=== PATIENT | male | born 1975 | race Caucasian/White ===

== ENCOUNTER 2016-04-28 15:00 | Outpatient (RCR) | payer MEDICAID ==
[~2016-04-28 15:00] MED LIST: ALDACTONE 25MG25 M1 PO; APRESOLINE 25MG25 MG PO; ASPIRIN 32325 MG/TA1 PO; ASPIRIN 32325 MG/TAB PO; ASPIRIN 81M81 MG/TA2 PO; ATENOLOL50 MG PO; BETAPACE 80MG80 MG PO; BETAPACE160 MG PO; CEFTIN 250250 MG/TAB PO; CEPHALEXIN500 M1 PO; COREG 25MG25 MG/TAB PO; COREG 6.256.25 MG/TA PO; COREG12.5 MG PO; DEMADEX 20MG20 M1 PO; DIABETA 2.5MG2.5 MG PO; EPA1000 MG PO; GLUCOPHAGE XR500 M1 PO; GLUCOPHAGE1000 MG PO; GLUCOPHAGE500 MG PO; GLUCOPHAGE500 MG/TAB PO; GLYBURIDE MICRON3 MG PO; IMDUR 30MG30 MG/TAB PO; K-DUR 2020 MEQ PO; K-TAB10 PO; LANOXIN 0.120.125 MG PO; LANTUS100 U/ML SQ; LASIX 40MG TABL40 MG PO; LASIX40 MG PO; LASIX80 MG PO; LEVAQUIN 750MG750 M1 PO; LIPITOR 40MG TA40 MG PO; LISINOPRIL10 MG PO; METFORMIN500 MG PO; NO HOME MEDICATIONS; NORCO 325 MG-51 TAB PO; NORVASC 10MG10 MG PO; OMNICEF 300MG300 MG PO; PHENERGAN W/CO120 ML PO; PRINIVIL40 MG; PRINIVIL40 MG PO; PROAIR HFA0.09 MG/AC IH; TUSS PO; TYLENOL 325MG325 MG PO; XARELTO20 MG PO; ZAROXOLYN 2.52.5 MG PO; ZESTRIL 20MG TA20 MG PO; ZESTRIL40 MG PO; ZITHROMAX 250M250 MG PO
== END 2016-05-11 12:45 | disposition still patient (30) ==
LOC: WSPT 15:00
DX: E11.42 Type 2 diabetes mellitus with diabetic polyneuropathy (principal); E11.622 Type 2 diabetes mellitus with other skin ulcer; L97.929 Non-pressure chronic ulcer of unspecified part of left lower leg with unspecified severity; R60.0 Localized edema; E66.8 Other obesity

== ENCOUNTER 2016-08-15 04:48 | Inpatient (IN) | payer MEDICAID ==
[~2016-08-15] VITALS: Ht 193 cm; Wt 128.0 kg
[2016-08-15 05:14] LABS: BASO % 0.4 % (0.0-2.0); EOS # 0.2 (0.0-0.7); EOS % 2.1 % (0-4.0); GRAN # 7.2 (1.4-6.5); GRAN % 76.2 % (42.2-75.2); HEMATOCRIT 42.9 % (42.0-52.0); HEMOGLOBIN 12.7 g/dl (13.5-18.0); LYMPH # 1.4 (1.2-3.4); LYMPH % 15.1 % (20.0-51.0); MEAN CELL VOLUME 83 fl (80.0-100.0); MEAN CORPUSCULAR HEMOGLOBIN 25 pg (27.0-31.0); MEAN CORPUSCULAR HGB CONC 30 g/dl (33.0-37.0); MEAN PLATELET VOLUME 10.8 fl (7.4-10.4); MONO # 0.6 (0.1-0.6); MONO % 5.9 % (1.7-9.3); PLATELET COUNT 189 K/mm3 (130-400); RED BLOOD COUNT 5.15 M/mm3 (4.20-5.60); REDCELL DISTRIBUTION WIDTH-CV 17.2 % (11.5-14.5); WHITE BLOOD COUNT 9.5 K/mm3 (4.8-10.8)
[2016-08-15 05:17] LABS: INR 1.2 (0.8-3.0)
[2016-08-15 05:20] LABS: PARTIAL THROMBOPLASTIN TIME 32.1 SECONDS (26.0-37.0)
[2016-08-15 05:23] LABS: ADJUSTED CALCIUM 8.7 mg/dL (8.4-10.2); ALBUMIN 3.6 gm/dL (3.5-5.0); BILIRUBIN,TOTAL 1.7 mg/dL (0.0-1.0); CALCIUM 8.4 mg/dL (8.4-10.2); CREATININE, serum 0.95 mg/dL (0.66-1.25); POTASSIUM 4.2 mmol/L (3.4-5.0); TOTAL PROTEIN 6.6 gm/dL (6.4-8.2)
[2016-08-15 05:38] LABS: TROPONIN-I 0.079 ng/mL (0.000-0.034)
[2016-08-15 06:57] VITALS: BP 143/93; PULSE 88; TEMP 97.7
[2016-08-15 08:06] VITALS: BP 160/110; PULSE 85; TEMP 98
[2016-08-15 12:35] VITALS: BP 110/60; PULSE 64; TEMP 98.1
[2016-08-15 16:17] VITALS: BP 98/56; PULSE 63; TEMP 98
[2016-08-15 20:10] VITALS: BP 97/59; PULSE 61; TEMP 97.6
[2016-08-16 00:24] VITALS: BP 126/64; PULSE 63; TEMP 97.9
[2016-08-16 04:35] VITALS: BP 126/88; PULSE 62; TEMP 97.7
[2016-08-16 08:02] LABS: BASO # 0.1 (0.0-0.2); BASO % 0.5 % (0.0-2.0); EOS # 0.3 (0.0-0.7); EOS % 2.7 % (0-4.0); GRAN # 7.3 (1.4-6.5); GRAN % 76.9 % (42.2-75.2); HEMATOCRIT 43.4 % (42.0-52.0); HEMOGLOBIN 12.6 g/dl (13.5-18.0); LYMPH # 1.3 (1.2-3.4); LYMPH % 13.6 % (20.0-51.0); MEAN CELL VOLUME 86 fl (80.0-100.0); MEAN CORPUSCULAR HGB CONC 29 g/dl (33.0-37.0); MEAN PLATELET VOLUME 10.2 fl (7.4-10.4); MONO # 0.6 (0.1-0.6); MONO % 5.9 % (1.7-9.3); PLATELET COUNT 195 K/mm3 (130-400); RED BLOOD COUNT 5.06 M/mm3 (4.20-5.60); REDCELL DISTRIBUTION WIDTH-CV 17.5 % (11.5-14.5); WHITE BLOOD COUNT 9.5 K/mm3 (4.8-10.8)
[2016-08-16 08:06] LABS: MEAN CORPUSCULAR HEMOGLOBIN 25 pg (27.0-31.0)
[2016-08-16 08:14] LABS: ADJUSTED CALCIUM 8.8 mg/dL (8.4-10.2); ALBUMIN 3.8 gm/dL (3.5-5.0); BILIRUBIN,TOTAL 1.7 mg/dL (0.0-1.0); CALCIUM 8.6 mg/dL (8.4-10.2); CREATININE, serum 1.05 mg/dL (0.66-1.25); MAGNESIUM 1.7 mg/dL (1.6-2.3); POTASSIUM 4.4 mmol/L (3.4-5.0); TOTAL PROTEIN 6.9 gm/dL (6.4-8.2)
[2016-08-16 08:25] LABS: TROPONIN-I 0.071 ng/mL (0.000-0.034)
[2016-08-16 08:38] VITALS: BP 133/72; PULSE 123; TEMP 98.1
[2016-08-16 11:35] VITALS: BP 120/71; PULSE 62; TEMP 98.3
[2016-08-16 21:55] VITALS: BP 121/66; PULSE 63; TEMP 98.7
[2016-08-16 23:43] VITALS: BP 116/62; PULSE 61; TEMP 97.6
[2016-08-17 04:11] VITALS: BP 139/89; PULSE 61; TEMP 98.5
[2016-08-17 08:24] VITALS: BP 114/76; PULSE 68; TEMP 98
[2016-08-17 12:22] VITALS: BP 104/59; PULSE 62; TEMP 97.9
[2016-08-17 15:56] VITALS: BP 116/61; PULSE 66; TEMP 98.4
[2016-08-17 23:04] VITALS: BP 115/69; PULSE 58; TEMP 98.7
[2016-08-18 03:53] VITALS: BP 138/76; PULSE 59; TEMP 97.7
[2016-08-18 07:49] LABS: BASO % 0.5 % (0.0-2.0); EOS # 0.2 (0.0-0.7); EOS % 2.9 % (0-4.0); GRAN # 6.2 (1.4-6.5); GRAN % 74.4 % (42.2-75.2); HEMATOCRIT 41.8 % (42.0-52.0); HEMOGLOBIN 12.5 g/dl (13.5-18.0); LYMPH # 1.2 (1.2-3.4); LYMPH % 14.1 % (20.0-51.0); MEAN CELL VOLUME 83 fl (80.0-100.0); MEAN CORPUSCULAR HEMOGLOBIN 25 pg (27.0-31.0); MEAN CORPUSCULAR HGB CONC 30 g/dl (33.0-37.0); MEAN PLATELET VOLUME 11.7 fl (7.4-10.4); MONO # 0.6 (0.1-0.6); MONO % 7.6 % (1.7-9.3); PLATELET COUNT 207 K/mm3 (130-400); RED BLOOD COUNT 5.01 M/mm3 (4.20-5.60); REDCELL DISTRIBUTION WIDTH-CV 17.2 % (11.5-14.5); WHITE BLOOD COUNT 8.3 K/mm3 (4.8-10.8)
[2016-08-18 08:10] LABS: CALCIUM 8.6 mg/dL (8.4-10.2); CREATININE, serum 0.94 mg/dL (0.66-1.25); POTASSIUM 3.8 mmol/L (3.4-5.0)
[2016-08-18 08:31] VITALS: BP 138/91; PULSE 64; TEMP 97.4
[2016-08-18 11:44] VITALS: BP 93/58; PULSE 62; TEMP 97.8
== END 2016-08-18 16:14 | disposition home or self-care (01) | DRG 282 ==
LOC: COL.ER 04:48 → MEDICAL 05:58
PROVIDERS: Emergency Medicine; Internal Medicine; Physician Assistant
DX: I11.0 Hypertensive heart disease with heart failure (principal); I21.4 Non-ST elevation (NSTEMI) myocardial infarction; I50.21 Acute systolic (congestive) heart failure; I42.9 Cardiomyopathy, unspecified; I48.0 Paroxysmal atrial fibrillation; E11.9 Type 2 diabetes mellitus without complications; G47.33 Obstructive sleep apnea (adult) (pediatric); E78.5 Hyperlipidemia, unspecified; Z79.01 Long term (current) use of anticoagulants; Z95.0 Presence of cardiac pacemaker; Z95.810 Presence of automatic (implantable) cardiac defibrillator; Z87.891 Personal history of nicotine dependence; Z91.14 Patient's other noncompliance with medication regimen
CPT/HCPCS: 99223-AI; 99232-AI; 99233-AI; 99239; J1815; J1940; J2270

== ENCOUNTER 2016-11-22 07:32 | Day surgery (SDC) | payer MEDICAID ==
[2016-11-22] VITALS (11 sets, daily range): BP systolic 109–143; BP diastolic 72–93; PULSE 47–80; TEMP 97.5
[~2016-11-22] VITALS: Ht 193 cm; Wt 129.0 kg
[2016-11-22 08:24] LABS: INR 1.2 (0.8-3.0); PROTHROMBIN TIME 12.8 SECONDS (9.7-12.8)
[2016-11-22 08:28] LABS: POTASSIUM 4.2 mmol/L (3.4-5.0)
[2016-11-22 09:03] LABS: THYROID STIMULATING HORMONE 2.46 uIU/mL (0.465-4.680)
[2016-11-22] MEDS ORDERED: ASPIRIN 81M81 MG/TA2 PO (09:03)
[2016-11-22] MEDS ORDERED: PACERONE400 MG PO (09:04)
[2016-11-22] MEDS ORDERED: DEMADEX100 MG PO (09:05)
== END 2016-11-22 11:14 | disposition home or self-care (01) ==
LOC: COL.CAR 07:32
PROVIDERS: Internal Medicine Cardiovascular Disease
DX: I48.92 Unspecified atrial flutter (principal); I08.1 Rheumatic disorders of both mitral and tricuspid valves; I48.0 Paroxysmal atrial fibrillation; I42.0 Dilated cardiomyopathy; I11.0 Hypertensive heart disease with heart failure; I50.20 Unspecified systolic (congestive) heart failure; G47.33 Obstructive sleep apnea (adult) (pediatric); E11.9 Type 2 diabetes mellitus without complications; E66.9 Obesity, unspecified; Z68.34 Body mass index [BMI] 34.0-34.9, adult; Z79.4 Long term (current) use of insulin; Z79.84 Long term (current) use of oral hypoglycemic drugs; Z79.01 Long term (current) use of anticoagulants; Z87.891 Personal history of nicotine dependence; Z83.3 Family history of diabetes mellitus
CPT/HCPCS: J2250; J3010; J7030

== ENCOUNTER 2017-01-08 02:14 | Emergency (ER) | payer MEDICAID ==
[~2017-01-08 02:14] MED LIST changes: +DEMADEX100 MG PO; +PACERONE400 MG PO
[2017-01-08 02:18] VITALS: TEMP 98.8
[2017-01-08 03:49] LABS: BASO # 0.1 (0.0-0.2); BASO % 0.4 % (0.0-2.0); EOS # 0.2 (0.0-0.7); EOS % 1.7 % (0-4.0); GRAN # 9.4 (1.4-6.5); GRAN % 76.3 % (42.2-75.2); HEMATOCRIT 39.7 % (42.0-52.0); HEMOGLOBIN 12.8 g/dl (13.5-18.0); LYMPH # 1.7 (1.2-3.4); LYMPH % 13.9 % (20.0-51.0); MEAN CELL VOLUME 83 fl (80.0-100.0); MEAN CORPUSCULAR HEMOGLOBIN 27 pg (27.0-31.0); MEAN CORPUSCULAR HGB CONC 32 g/dl (33.0-37.0); MEAN PLATELET VOLUME 11.2 fl (7.4-10.4); MONO # 0.9 (0.1-0.6); MONO % 7.4 % (1.7-9.3); PLATELET COUNT 170 K/mm3 (130-400); RED BLOOD COUNT 4.78 M/mm3 (4.20-5.60); REDCELL DISTRIBUTION WIDTH-CV 18.3 % (11.5-14.5)
[2017-01-08 03:55] LABS: INR 1.1 (0.8-3.0); PROTHROMBIN TIME 12.6 SECONDS (9.7-12.8)
[2017-01-08 03:57] LABS: PARTIAL THROMBOPLASTIN TIME 32.7 SECONDS (26.0-37.0)
[2017-01-08 03:59] LABS: D-DIMER < 200.00 ng/mLDDu (200-230)
[2017-01-08 04:01] LABS: ALBUMIN 3.9 gm/dL (3.5-5.0); BILIRUBIN,TOTAL 1.1 mg/dL (0.0-1.0); CALCIUM 8.8 mg/dL (8.4-10.2); CREATININE, serum 0.98 mg/dL (0.66-1.25); POTASSIUM 4.1 mmol/L (3.4-5.0)
[2017-01-08] MEDS ORDERED: PERCOCET 325 MG1 TA2 PO (04:56)
[2017-01-08] MEDS ORDERED: DOXYCYCLINE 10100 MG PO (04:56)
[2017-01-08 05:27] VITALS: BP 127/73; PULSE 69
[2017-04-01] MEDS ORDERED: AMOXICILLIN 50500 MG PO (03:30)
[2017-04-01] MEDS ORDERED: NORCO 325 MG-51 TAB PO (03:30)
[2018-02-18] MEDS ORDERED: NEURONTIN600 MG/TAB PO (03:22)
== END 2017-01-08 05:27 | disposition home or self-care (01) ==
LOC: COL.ER 02:14
PROVIDERS: Emergency Medicine
DX: L03.115 Cellulitis of right lower limb (principal); E11.622 Type 2 diabetes mellitus with other skin ulcer; L97.219 Non-pressure chronic ulcer of right calf with unspecified severity; L97.929 Non-pressure chronic ulcer of unspecified part of left lower leg with unspecified severity; I10 Essential (primary) hypertension; F17.200 Nicotine dependence, unspecified, uncomplicated; I42.9 Cardiomyopathy, unspecified; Z79.01 Long term (current) use of anticoagulants; T45.516A Underdosing of anticoagulants, initial encounter
CPT/HCPCS: J1170; J2405

== ENCOUNTER 2017-02-03 02:30 | Observation (INO) | payer MEDICAID ==
[~2017-02-03] VITALS: Ht 193 cm; Wt 104.6 kg
[2017-02-03] VITALS (305 sets, daily range): BP systolic 118–121; BP diastolic 68–75; PULSE 59–66; TEMP 98.2–98.4; O2SAT 78–99
[~2017-02-03 02:30] MED LIST changes: +DOXYCYCLINE 10100 MG PO; +PERCOCET 325 MG1 TA2 PO
[2017-02-03 03:08] LABS: BASO % 0.4 % (0.0-2.0); EOS # 0.2 (0.0-0.7); EOS % 2.5 % (0-4.0); GRAN # 6.2 (1.4-6.5); GRAN % 67.8 % (42.2-75.2); HEMATOCRIT 43.7 % (42.0-52.0); HEMOGLOBIN 13.8 g/dl (13.5-18.0); LYMPH # 1.9 (1.2-3.4); LYMPH % 20.3 % (20.0-51.0); MEAN CELL VOLUME 85 fl (80.0-100.0); MEAN CORPUSCULAR HEMOGLOBIN 27 pg (27.0-31.0); MEAN CORPUSCULAR HGB CONC 32 g/dl (33.0-37.0); MEAN PLATELET VOLUME 10.4 fl (7.4-10.4); MONO # 0.8 (0.1-0.6); MONO % 8.6 % (1.7-9.3); PLATELET COUNT 203 K/mm3 (130-400); RED BLOOD COUNT 5.14 M/mm3 (4.20-5.60); REDCELL DISTRIBUTION WIDTH-CV 17.2 % (11.5-14.5); WHITE BLOOD COUNT 9.2 K/mm3 (4.8-10.8)
[2017-02-03 03:14] LABS: INR 1.5 (0.8-3.0); PROTHROMBIN TIME 17.4 SECONDS (9.7-12.8)
[2017-02-03 03:16] LABS: PARTIAL THROMBOPLASTIN TIME 41.9 SECONDS (26.0-37.0)
[2017-02-03 03:17] LABS: ADJUSTED CALCIUM 9.6 mg/dL (8.4-10.2); ALBUMIN 3.9 gm/dL (3.5-5.0); BILIRUBIN,TOTAL 0.9 mg/dL (0.0-1.0); CALCIUM 9.5 mg/dL (8.4-10.2); CREATININE, serum 1.41 mg/dL (0.66-1.25); POTASSIUM 3.9 mmol/L (3.4-5.0); TOTAL PROTEIN 7.4 gm/dL (6.4-8.2)
[2017-02-03 03:29] LABS: TROPONIN-I 0.027 ng/mL (0.000-0.034)
[2017-02-03 06:18] LABS: CREATININE, serum 1.26 mg/dL (0.66-1.25); POTASSIUM 4.1 mmol/L (3.4-5.0)
[2017-02-03 06:31] LABS: TROPONIN-I 0.036 ng/mL (0.000-0.034)
[2017-02-04] VITALS (9 sets, daily range): BP systolic 110–141; BP diastolic 54–79; PULSE 60–73; TEMP 97.8–98.1
[2017-02-04 06:37] LABS: HEMATOCRIT 44.9 % (42.0-52.0); HEMOGLOBIN 14.3 g/dl (13.5-18.0); MEAN CELL VOLUME 87 fl (80.0-100.0); MEAN CORPUSCULAR HEMOGLOBIN 28 pg (27.0-31.0); MEAN CORPUSCULAR HGB CONC 32 g/dl (33.0-37.0); MEAN PLATELET VOLUME 10.5 fl (7.4-10.4); PLATELET COUNT 178 K/mm3 (130-400); RED BLOOD COUNT 5.17 M/mm3 (4.20-5.60); REDCELL DISTRIBUTION WIDTH-CV 18.6 % (11.5-14.5); WHITE BLOOD COUNT 9.3 K/mm3 (4.8-10.8)
[2017-02-04 06:59] LABS: CALCIUM 9.1 mg/dL (8.4-10.2); CREATININE, serum 0.9 mg/dL (0.66-1.25); POTASSIUM 4.4 mmol/L (3.4-5.0)
== END 2017-02-04 14:44 | disposition home or self-care (01) ==
LOC: COL.ER 02:30 → MEDICAL 07:13 → ICU 07:13 → MEDICAL 07:13
PROVIDERS: Emergency Medicine; Internal Medicine Cardiovascular Disease
DX: R07.9 Chest pain, unspecified (principal); I42.0 Dilated cardiomyopathy; I48.91 Unspecified atrial fibrillation; I48.92 Unspecified atrial flutter; E66.9 Obesity, unspecified; E78.5 Hyperlipidemia, unspecified; I11.0 Hypertensive heart disease with heart failure; E11.9 Type 2 diabetes mellitus without complications; I50.9 Heart failure, unspecified; I08.1 Rheumatic disorders of both mitral and tricuspid valves; Z79.01 Long term (current) use of anticoagulants; Z79.84 Long term (current) use of oral hypoglycemic drugs; Z95.0 Presence of cardiac pacemaker; Z95.818 Presence of other cardiac implants and grafts; Z87.891 Personal history of nicotine dependence; Z82.49 Family history of ischemic heart disease and other diseases of the circulatory system
CPT/HCPCS: 99223-AI; A9502; G0378; J1650; J2270; J2785; J7040

== ENCOUNTER 2017-05-07 21:21 | Emergency (ER) | payer MEDICAID ==
[~2017-05-07] VITALS: Ht 193 cm; Wt 118.2 kg
[~2017-05-07 21:21] MED LIST changes: +AMOXICILLIN 50500 MG PO
[2017-05-07 21:25] VITALS: TEMP 97.6
[2017-05-07 21:57] LABS: BASO # 0.1 (0.0-0.2); BASO % 0.5 % (0.0-2.0); EOS # 0.2 (0.0-0.7); GRAN # 8.5 (1.4-6.5); GRAN % 77.9 % (42.2-75.2); LYMPH # 1.6 (1.2-3.4); LYMPH % 15.1 % (20.0-51.0); MEAN CELL VOLUME 89 fl (80.0-100.0); MEAN CORPUSCULAR HGB CONC 32 g/dl (33.0-37.0); MEAN PLATELET VOLUME 10.6 fl (7.4-10.4); MONO # 0.4 (0.1-0.6); PLATELET COUNT 188 K/mm3 (130-400); RED BLOOD COUNT 4.11 M/mm3 (4.20-5.60); REDCELL DISTRIBUTION WIDTH-CV 15.4 % (11.5-14.5)
[2017-05-07 21:58] LABS: HEMATOCRIT 36.7 % (42.0-52.0); HEMOGLOBIN 11.8 g/dl (13.5-18.0); MEAN CORPUSCULAR HEMOGLOBIN 29 pg (27.0-31.0)
[2017-05-07 22:03] LABS: INR 1.1 (0.8-3.0); PROTHROMBIN TIME 12.7 SECONDS (9.7-12.8)
[2017-05-07 22:06] LABS: ALBUMIN 3.5 gm/dL (3.5-5.0); BILIRUBIN,TOTAL 1.3 mg/dL (0.0-1.0); CALCIUM 8.6 mg/dL (8.4-10.2); CREATININE, serum 0.96 mg/dL (0.66-1.25); PARTIAL THROMBOPLASTIN TIME 29.6 SECONDS (26.0-37.0); POTASSIUM 3.7 mmol/L (3.4-5.0); TOTAL PROTEIN 6.5 gm/dL (6.4-8.2)
[2017-05-07 22:19] LABS: TROPONIN-I 0.069 ng/mL (0.000-0.034)
[2017-05-07 23:25] VITALS: BP 150/110; PULSE 95
== END 2017-05-07 23:28 | disposition home or self-care (01) ==
LOC: COL.ER 21:21
PROVIDERS: Family Medicine
DX: I50.9 Heart failure, unspecified (principal); J81.1 Chronic pulmonary edema; E11.9 Type 2 diabetes mellitus without complications; F17.210 Nicotine dependence, cigarettes, uncomplicated; Z79.84 Long term (current) use of oral hypoglycemic drugs; Z79.82 Long term (current) use of aspirin
CPT/HCPCS: J1940

== ENCOUNTER 2017-05-17 23:15 | Inpatient (IN) | payer MEDICAID ==
[~2017-05-17] VITALS: Ht 193 cm; Wt 124.8 kg
[2017-05-18] VITALS (8 sets, daily range): BP systolic 96–149; BP diastolic 58–86; PULSE 55–105; TEMP 87.9–99.3
[2017-05-18 00:15] LABS: BASO # 0.1 (0.0-0.2); BASO % 0.5 % (0.0-2.0); EOS # 0.2 (0.0-0.7); EOS % 1.7 % (0-4.0); GRAN # 7.4 (1.4-6.5); GRAN % 74.6 % (42.2-75.2); HEMATOCRIT 38.2 % (42.0-52.0); HEMOGLOBIN 11.8 g/dl (13.5-18.0); LYMPH # 1.6 (1.2-3.4); LYMPH % 15.9 % (20.0-51.0); MEAN CELL VOLUME 92 fl (80.0-100.0); MEAN CORPUSCULAR HEMOGLOBIN 28 pg (27.0-31.0); MEAN CORPUSCULAR HGB CONC 31 g/dl (33.0-37.0); MEAN PLATELET VOLUME 11.2 fl (7.4-10.4); MONO # 0.7 (0.1-0.6); MONO % 6.8 % (1.7-9.3); PLATELET COUNT 212 K/mm3 (130-400); RED BLOOD COUNT 4.16 M/mm3 (4.20-5.60); REDCELL DISTRIBUTION WIDTH-CV 15.7 % (11.5-14.5)
[2017-05-18 00:19] LABS: INR 1.1 (0.8-3.0); PROTHROMBIN TIME 12.6 SECONDS (9.7-12.8)
[2017-05-18 00:22] LABS: PARTIAL THROMBOPLASTIN TIME 29.4 SECONDS (26.0-37.0)
[2017-05-18 00:30] LABS: ALBUMIN 3.8 gm/dL (3.5-5.0); BILIRUBIN,TOTAL 0.7 mg/dL (0.0-1.0); CALCIUM 8.9 mg/dL (8.4-10.2); CREATININE, serum 1.11 mg/dL (0.66-1.25); POTASSIUM 4.2 mmol/L (3.4-5.0); TOTAL PROTEIN 6.8 gm/dL (6.4-8.2)
[2017-05-18 00:43] LABS: TROPONIN-I 0.059 ng/mL (0.000-0.034)
[2017-05-18 07:11] LABS: CALCIUM 8.8 mg/dL (8.4-10.2); CREATININE, serum 1.09 mg/dL (0.66-1.25); MAGNESIUM 1.6 mg/dL (1.6-2.3); PHOSPHOROUS 4.6 mg/dL (2.5-4.5); POTASSIUM 4.2 mmol/L (3.4-5.0)
[2017-05-18 07:15] LABS: TROPONIN-I 6 HR POST INITIAL 0.059 ng/mL (0.000-0.034)
[2017-05-19 05:11] VITALS: BP 97/67; PULSE 61; TEMP 98.1
[2017-05-19 06:15] VITALS: BP 104/66
[2017-05-19 06:38] LABS: BASO # 0.1 (0.0-0.2); BASO % 0.6 % (0.0-2.0); EOS # 0.1 (0.0-0.7); EOS % 1.2 % (0-4.0); GRAN # 6.9 (1.4-6.5); GRAN % 76.2 % (42.2-75.2); LYMPH # 1.3 (1.2-3.4); LYMPH % 14.8 % (20.0-51.0); MEAN CELL VOLUME 91 fl (80.0-100.0); MEAN CORPUSCULAR HEMOGLOBIN 28 pg (27.0-31.0); MEAN CORPUSCULAR HGB CONC 30 g/dl (33.0-37.0); MEAN PLATELET VOLUME 11.3 fl (7.4-10.4); MONO # 0.6 (0.1-0.6); MONO % 6.6 % (1.7-9.3); PLATELET COUNT 193 K/mm3 (130-400); RED BLOOD COUNT 4.05 M/mm3 (4.20-5.60)
[2017-05-19 06:39] LABS: HEMOGLOBIN 11.2 g/dl (13.5-18.0)
[2017-05-19 06:51] LABS: CALCIUM 8.4 mg/dL (8.4-10.2); CREATININE, serum 1.12 mg/dL (0.66-1.25); POTASSIUM 3.4 mmol/L (3.4-5.0)
[2017-05-19] MEDS ORDERED: DOXYCYCLINE 10100 MG PO (09:46)
[2017-05-19] MEDS ORDERED: DEMADEX 20MG20 M1 PO (09:47)
[2017-05-19] MEDS ORDERED: K-TAB20 PO (09:48)
== END 2017-05-19 12:00 | disposition home or self-care (01) | DRG 602 ==
LOC: COL.ER 23:15 → MEDICAL 05-18 01:04
PROVIDERS: Emergency Medicine; Internal Medicine; Physician Assistant
DX: L03.115 Cellulitis of right lower limb (principal); I50.23 Acute on chronic systolic (congestive) heart failure; I21.A1 Myocardial infarction type 2; I42.9 Cardiomyopathy, unspecified; I11.0 Hypertensive heart disease with heart failure; E11.9 Type 2 diabetes mellitus without complications; G47.33 Obstructive sleep apnea (adult) (pediatric); F17.210 Nicotine dependence, cigarettes, uncomplicated; D64.9 Anemia, unspecified; Z95.810 Presence of automatic (implantable) cardiac defibrillator; Z79.4 Long term (current) use of insulin
CPT/HCPCS: 99222-AI; 99233-AI; 99239; J1644; J1815; J1940; J2270

== ENCOUNTER 2017-06-10 19:09 | Emergency (ER) | payer MEDICAID ==
[~2017-06-10] VITALS: Ht 193 cm; Wt 122.7 kg
[~2017-06-10 19:09] MED LIST changes: +K-TAB20 PO
[2017-06-10 19:14] VITALS: TEMP 99.7
[2017-06-10 20:16] LABS: BASO # 0.1 (0.0-0.2); BASO % 0.7 % (0.0-2.0); EOS # 0.2 (0.0-0.7); EOS % 2.1 % (0-4.0); GRAN # 6.9 (1.4-6.5); GRAN % 79.5 % (42.2-75.2); HEMATOCRIT 38.1 % (42.0-52.0); LYMPH % 11.6 % (20.0-51.0); MEAN CELL VOLUME 89 fl (80.0-100.0); MEAN CORPUSCULAR HEMOGLOBIN 27 pg (27.0-31.0); MEAN CORPUSCULAR HGB CONC 30 g/dl (33.0-37.0); MEAN PLATELET VOLUME 11.6 fl (7.4-10.4); MONO # 0.5 (0.1-0.6); MONO % 5.8 % (1.7-9.3); PLATELET COUNT 177 K/mm3 (130-400); RED BLOOD COUNT 4.28 M/mm3 (4.20-5.60); REDCELL DISTRIBUTION WIDTH-CV 16.6 % (11.5-14.5)
[2017-06-10 20:17] LABS: HEMOGLOBIN 11.6 g/dl (13.5-18.0)
[2017-06-10 20:27] LABS: ALBUMIN 3.8 gm/dL (3.5-5.0); C-REACTIVE PROTEIN 3.9 mg/dL (0.0-0.9); CALCIUM 8.6 mg/dL (8.4-10.2); CREATININE, serum 0.92 mg/dL (0.66-1.25); POTASSIUM 4.3 mmol/L (3.4-5.0); TOTAL PROTEIN 6.9 gm/dL (6.4-8.2)
[2017-06-10 20:40] LABS: TROPONIN-I 0.057 ng/mL (0.000-0.034)
[2017-06-10] MEDS ORDERED: DOXYCYCLINE 10100 MG PO (21:04)
[2017-06-10 21:25] VITALS: BP 133/58; PULSE 92
== END 2017-06-10 21:25 | disposition home or self-care (01) ==
LOC: COL.ER 19:09
PROVIDERS: Emergency Medicine
DX: J45.909 Unspecified asthma, uncomplicated (principal); J20.9 Acute bronchitis, unspecified; R79.89 Other specified abnormal findings of blood chemistry; I48.91 Unspecified atrial fibrillation; I11.0 Hypertensive heart disease with heart failure; I50.9 Heart failure, unspecified; E11.9 Type 2 diabetes mellitus without complications; I42.9 Cardiomyopathy, unspecified; F17.210 Nicotine dependence, cigarettes, uncomplicated; Z79.82 Long term (current) use of aspirin; Z79.84 Long term (current) use of oral hypoglycemic drugs

== ENCOUNTER 2017-06-13 19:49 | Emergency (ER) | payer MEDICAID ==
[~2017-06-13] VITALS: Ht 193 cm; Wt 122.7 kg
[2017-06-13 19:51] VITALS: BP 150/87; PULSE 94; TEMP 97.4
[2017-06-13] MEDS ORDERED: AMOXICILLIN 50500 MG PO (20:16)
[2017-06-13] MEDS ORDERED: NORCO 325 MG-51 TAB PO (20:16)
== END 2017-06-13 20:43 | disposition home or self-care (01) ==
LOC: COL.ER 19:49
DX: K01.1 Impacted teeth (principal); I10 Essential (primary) hypertension; I42.9 Cardiomyopathy, unspecified; F17.210 Nicotine dependence, cigarettes, uncomplicated; Z79.82 Long term (current) use of aspirin; Z79.84 Long term (current) use of oral hypoglycemic drugs

== ENCOUNTER 2017-06-23 04:35 | Emergency (ER) | payer MEDICAID ==
[~2017-06-23] VITALS: Ht 193 cm; Wt 125.0 kg
[2017-06-23 04:40] VITALS: TEMP 97
[2017-06-23 05:17] LABS: BASO % 0.3 % (0.0-2.0); EOS # 0.2 (0.0-0.7); EOS % 1.9 % (0-4.0); GRAN # 7.8 (1.4-6.5); HEMATOCRIT 37.8 % (42.0-52.0); LYMPH # 1.3 (1.2-3.4); LYMPH % 13.5 % (20.0-51.0); MEAN CELL VOLUME 87 fl (80.0-100.0); MEAN CORPUSCULAR HEMOGLOBIN 27 pg (27.0-31.0); MEAN CORPUSCULAR HGB CONC 30 g/dl (33.0-37.0); MEAN PLATELET VOLUME 10.9 fl (7.4-10.4); MONO # 0.5 (0.1-0.6); MONO % 4.9 % (1.7-9.3); PLATELET COUNT 187 K/mm3 (130-400); RED BLOOD COUNT 4.33 M/mm3 (4.20-5.60); REDCELL DISTRIBUTION WIDTH-CV 16.4 % (11.5-14.5)
[2017-06-23 05:18] LABS: HEMOGLOBIN 11.5 g/dl (13.5-18.0)
[2017-06-23 05:26] LABS: ALBUMIN 3.6 gm/dL (3.5-5.0); BILIRUBIN,TOTAL 0.9 mg/dL (0.0-1.0); CALCIUM 8.5 mg/dL (8.4-10.2); CREATININE, serum 0.91 mg/dL (0.66-1.25); POTASSIUM 4.5 mmol/L (3.4-5.0); TOTAL PROTEIN 6.5 gm/dL (6.4-8.2)
[2017-06-23 05:42] LABS: TROPONIN-I 0.049 ng/mL (0.000-0.034)
[2017-06-23] MEDS ORDERED: PREDNISONE20 MG PO (07:46)
[2017-06-23 08:59] VITALS: BP 125/90; PULSE 74
== END 2017-06-23 09:00 | disposition home or self-care (01) ==
LOC: COL.ER 04:35
PROVIDERS: Emergency Medicine
DX: I11.0 Hypertensive heart disease with heart failure (principal); I50.9 Heart failure, unspecified; E11.9 Type 2 diabetes mellitus without complications; I48.91 Unspecified atrial fibrillation; F17.210 Nicotine dependence, cigarettes, uncomplicated; Z79.82 Long term (current) use of aspirin; Z79.84 Long term (current) use of oral hypoglycemic drugs
CPT/HCPCS: J1940

== ENCOUNTER 2017-09-21 18:03 | Emergency (ER) | payer OTHER ==
[~2017-09-21] VITALS: Ht 162.6 cm; Wt 122.7 kg
[~2017-09-21 18:03] MED LIST changes: +PREDNISONE20 MG PO
[2017-09-21 18:09] VITALS: TEMP 96.2
[2017-09-21 19:08] LABS: BASO % 0.5 % (0.0-2.0); EOS # 0.2 (0.0-0.7); EOS % 2.2 % (0-4.0); GRAN # 6.8 (1.4-6.5); GRAN % 77.6 % (42.2-75.2); HEMATOCRIT 39.2 % (42.0-52.0); HEMOGLOBIN 11.7 g/dl (13.5-18.0); LYMPH # 1.1 (1.2-3.4); MEAN CELL VOLUME 85 fl (80.0-100.0); MEAN CORPUSCULAR HEMOGLOBIN 25 pg (27.0-31.0); MEAN CORPUSCULAR HGB CONC 30 g/dl (33.0-37.0); MEAN PLATELET VOLUME 10.5 fl (7.4-10.4); MONO # 0.5 (0.1-0.6); MONO % 6.2 % (1.7-9.3); PLATELET COUNT 156 K/mm3 (130-400); RED BLOOD COUNT 4.63 M/mm3 (4.20-5.60); REDCELL DISTRIBUTION WIDTH-CV 18.4 % (11.5-14.5)
[2017-09-21 19:21] LABS: ALBUMIN 3.3 gm/dL (3.5-5.0); BILIRUBIN,TOTAL 1.2 mg/dL (0.0-1.0); CALCIUM 8.3 mg/dL (8.4-10.2); CREATININE, serum 0.85 mg/dL (0.66-1.25); POTASSIUM 4.2 mmol/L (3.4-5.0); TOTAL PROTEIN 6.6 gm/dL (6.4-8.2)
[2017-09-21 19:43] LABS: TROPONIN-I 0.052 ng/mL (0.000-0.034)
[2017-09-21 20:46] VITALS: BP 139/98; PULSE 82
== END 2017-09-21 21:27 | disposition home or self-care (01) ==
LOC: COL.ER 18:03
PROVIDERS: Nurse Practitioner
DX: R07.89 Other chest pain (principal); F32.9 Major depressive disorder, single episode, unspecified; I50.9 Heart failure, unspecified; F17.210 Nicotine dependence, cigarettes, uncomplicated; F12.90 Cannabis use, unspecified, uncomplicated; I42.9 Cardiomyopathy, unspecified; Z98.890 Other specified postprocedural states; Z79.4 Long term (current) use of insulin
CPT/HCPCS: J1940; J2270; Q9967

== ENCOUNTER 2017-09-28 22:54 | Emergency (ER) | payer OTHER ==
[~2017-09-28] VITALS: Ht 195.6 cm; Wt 127.0 kg
[2017-09-28 22:57] VITALS: TEMP 97.9
[2017-09-28 23:24] LABS: BASO % 0.4 % (0.0-2.0); EOS # 0.1 (0.0-0.7); EOS % 1.5 % (0-4.0); GRAN # 6.3 (1.4-6.5); HEMATOCRIT 39.6 % (42.0-52.0); LYMPH # 1.2 (1.2-3.4); LYMPH % 14.4 % (20.0-51.0); MEAN CELL VOLUME 82 fl (80.0-100.0); MEAN CORPUSCULAR HEMOGLOBIN 25 pg (27.0-31.0); MEAN CORPUSCULAR HGB CONC 30 g/dl (33.0-37.0); MEAN PLATELET VOLUME 10.6 fl (7.4-10.4); MONO # 0.7 (0.1-0.6); MONO % 8.3 % (1.7-9.3); PLATELET COUNT 181 K/mm3 (130-400); RED BLOOD COUNT 4.85 M/mm3 (4.20-5.60); REDCELL DISTRIBUTION WIDTH-CV 18.4 % (11.5-14.5)
[2017-09-28 23:30] LABS: INR 1.2 (0.8-3.0); PROTHROMBIN TIME 13.3 SECONDS (9.7-12.8)
[2017-09-28 23:33] LABS: ALBUMIN 3.4 gm/dL (3.5-5.0); BILIRUBIN,TOTAL 1.1 mg/dL (0.0-1.0); CALCIUM 8.6 mg/dL (8.4-10.2); CREATININE, serum 1.25 mg/dL (0.66-1.25); PARTIAL THROMBOPLASTIN TIME 35.3 SECONDS (26.0-37.0); POTASSIUM 4.3 mmol/L (3.4-5.0); TOTAL PROTEIN 6.9 gm/dL (6.4-8.2)
[2017-09-28 23:45] LABS: TROPONIN-I 0.052 ng/mL (0.000-0.034)
[2017-09-29] MEDS ORDERED: DOXYCYCLINE 10100 MG PO (00:20)
[2017-09-29 00:33] VITALS: BP 124/78; PULSE 64
== END 2017-09-29 00:35 | disposition home or self-care (01) ==
LOC: COL.ER 22:54
PROVIDERS: Family Medicine
DX: I11.0 Hypertensive heart disease with heart failure (principal); I50.9 Heart failure, unspecified; J90 Pleural effusion, not elsewhere classified; L03.116 Cellulitis of left lower limb; L03.115 Cellulitis of right lower limb; R60.9 Edema, unspecified
CPT/HCPCS: J1940

== ENCOUNTER 2017-12-03 09:29 | Emergency (ER) | payer OTHER ==
[~2017-12-03] VITALS: Ht 193 cm; Wt 122.7 kg
[2017-12-03 09:43] VITALS: TEMP 98
[2017-12-03 10:08] LABS: BASO % 0.4 % (0.0-2.0); EOS # 0.2 (0.0-0.7); EOS % 2.5 % (0-4.0); GRAN # 5.6 (1.4-6.5); GRAN % 71.7 % (42.2-75.2); HEMATOCRIT 40.2 % (42.0-52.0); HEMOGLOBIN 12.4 g/dl (13.5-18.0); LYMPH # 1.4 (1.2-3.4); LYMPH % 17.6 % (20.0-51.0); MEAN CELL VOLUME 84 fl (80.0-100.0); MEAN CORPUSCULAR HEMOGLOBIN 26 pg (27.0-31.0); MEAN CORPUSCULAR HGB CONC 31 g/dl (33.0-37.0); MEAN PLATELET VOLUME 10.4 fl (7.4-10.4); MONO # 0.6 (0.1-0.6); MONO % 7.5 % (1.7-9.3); PLATELET COUNT 163 K/mm3 (130-400); RED BLOOD COUNT 4.78 M/mm3 (4.20-5.60); REDCELL DISTRIBUTION WIDTH-CV 19.7 % (11.5-14.5)
[2017-12-03 10:11] LABS: INR 1.1 (0.8-3.0)
[2017-12-03 10:26] LABS: ALBUMIN 3.6 gm/dL (3.5-5.0); BILIRUBIN,TOTAL 0.9 mg/dL (0.0-1.0); C-REACTIVE PROTEIN 1.8 mg/dL (0.0-0.9); CALCIUM 8.7 mg/dL (8.4-10.2); CREATININE, serum 1.04 mg/dL (0.66-1.25); POTASSIUM 4.2 mmol/L (3.4-5.0); TOTAL PROTEIN 6.5 gm/dL (6.4-8.2)
[2017-12-03 10:38] LABS: TROPONIN-I 0.045 ng/mL (0.000-0.034)
[2017-12-03] MEDS ORDERED: AMOXICILLIN 8751 TAB PO (10:50)
[2017-12-03 11:05] VITALS: BP 111/71; PULSE 64
== END 2017-12-03 11:05 | disposition home or self-care (01) ==
LOC: COL.ER 09:29
PROVIDERS: Family Medicine
DX: I50.9 Heart failure, unspecified (principal); G62.9 Polyneuropathy, unspecified; Z79.84 Long term (current) use of oral hypoglycemic drugs

== ENCOUNTER 2017-12-12 08:29 | Emergency (ER) | payer OTHER ==
[~2017-12-12] VITALS: Ht 193 cm; Wt 122.7 kg
[~2017-12-12 08:29] MED LIST changes: +AMOXICILLIN 8751 TAB PO
[2017-12-12 08:34] VITALS: TEMP 97.8
[2017-12-12 09:37] LABS: BASO % 0.4 % (0.0-2.0); EOS # 0.2 (0.0-0.7); EOS % 2.3 % (0-4.0); GRAN # 7.1 (1.4-6.5); GRAN % 75.6 % (42.2-75.2); HEMATOCRIT 43.2 % (42.0-52.0); HEMOGLOBIN 13.4 g/dl (13.5-18.0); LYMPH # 1.3 (1.2-3.4); LYMPH % 13.2 % (20.0-51.0); MEAN CELL VOLUME 84 fl (80.0-100.0); MEAN CORPUSCULAR HEMOGLOBIN 26 pg (27.0-31.0); MEAN CORPUSCULAR HGB CONC 31 g/dl (33.0-37.0); MEAN PLATELET VOLUME 10.2 fl (7.4-10.4); MONO # 0.8 (0.1-0.6); MONO % 8.2 % (1.7-9.3); PLATELET COUNT 175 K/mm3 (130-400); RED BLOOD COUNT 5.13 M/mm3 (4.20-5.60); REDCELL DISTRIBUTION WIDTH-CV 18.7 % (11.5-14.5)
[2017-12-12 09:57] LABS: ERYTHROCYTE SEDIMENTATION RATE 6 mm/hr (0-15)
[2017-12-12] MEDS ORDERED: DOXYCYCLINE 10100 MG PO (10:47)
[2017-12-12] MEDS ORDERED: CEPHALEXIN500 M1 PO (10:47)
[2017-12-12] MEDS ORDERED: NORCO 325 MG-51 TAB PO (10:47)
[2017-12-12 11:04] LABS: ALBUMIN 3.7 gm/dL (3.5-5.0); BILIRUBIN,TOTAL 0.6 mg/dL (0.0-1.0); CALCIUM 8.3 mg/dL (8.4-10.2); CREATININE, serum 0.96 mg/dL (0.66-1.25); POTASSIUM 4.8 mmol/L (3.4-5.0)
[2017-12-12 11:42] VITALS: BP 138/90; PULSE 70
== END 2017-12-12 12:25 | disposition home or self-care (01) ==
LOC: COL.ER 08:29
PROVIDERS: Emergency Medicine
DX: L03.115 Cellulitis of right lower limb (principal); L03.116 Cellulitis of left lower limb; I11.0 Hypertensive heart disease with heart failure; I50.9 Heart failure, unspecified; I48.91 Unspecified atrial fibrillation; E78.00 Pure hypercholesterolemia, unspecified; Z95.810 Presence of automatic (implantable) cardiac defibrillator; Z79.84 Long term (current) use of oral hypoglycemic drugs
CPT/HCPCS: J1170; J7050

== ENCOUNTER 2018-07-16 02:31 | Emergency (ER) | payer MEDICAID ==
[~2018-07-16] VITALS: Ht 193 cm; Wt 125.0 kg
[~2018-07-16 02:31] MED LIST changes: +NEURONTIN600 MG/TAB PO
[2018-07-16 02:35] VITALS: TEMP 97.5
[2018-07-16] MEDS ORDERED: LASIX 80MG TABL80 MG PO (02:52)
[2018-07-16] MEDS ORDERED: COUMADIN 5MG5 MG/TAB PO (03:05)
[2018-07-16] MEDS ORDERED: ENTRESTO 49 MG1 EACH PO (03:05)
[2018-07-16] MEDS ORDERED: COREG 3.123.125 MG/T PO (03:05)
[2018-07-16] MEDS ORDERED: LIPITOR 40MG TA40 MG PO (03:05)
[2018-07-16] MEDS ORDERED: ALDACTONE 25MG25 M1 PO (03:06)
[2018-07-16 03:15] LABS: BASO % 0.4 % (0.0-2.0); EOS # 0.2 (0.0-0.7); EOS % 2.3 % (0-4.0); GRAN # 7.5 (1.4-6.5); GRAN % 70.8 % (42.2-75.2); HEMATOCRIT 49.6 % (42.0-52.0); HEMOGLOBIN 16.7 g/dl (13.5-18.0); LYMPH % 18.6 % (20.0-51.0); MEAN CELL VOLUME 88 fl (80.0-100.0); MEAN CORPUSCULAR HEMOGLOBIN 30 pg (27.0-31.0); MEAN CORPUSCULAR HGB CONC 34 g/dl (33.0-37.0); MEAN PLATELET VOLUME 11.2 fl (7.4-10.4); MONO # 0.8 (0.1-0.6); MONO % 7.3 % (1.7-9.3); PLATELET COUNT 168 K/mm3 (130-400); RED BLOOD COUNT 5.67 M/mm3 (4.20-5.60); REDCELL DISTRIBUTION WIDTH-CV 14.8 % (11.5-14.5)
[2018-07-16 03:26] LABS: BILIRUBIN,TOTAL 0.4 mg/dL (0.0-1.0); CREATININE, serum 1.05 mg/dL (0.66-1.25); INR 1.5 (0.8-3.0); POTASSIUM 4.4 mmol/L (3.4-5.0); PROTHROMBIN TIME 17.1 SECONDS (9.7-12.8); TOTAL PROTEIN 7.2 gm/dL (6.4-8.2)
[2018-07-16 03:29] LABS: PARTIAL THROMBOPLASTIN TIME 42.3 SECONDS (26.0-37.0)
[2018-07-16 03:38] LABS: TROPONIN-I 0.035 ng/mL (0.000-0.035)
[2018-07-16 05:36] VITALS: BP 138/86; PULSE 60
== END 2018-07-16 05:44 | disposition left against medical advice (07) ==
LOC: COL.ER 02:31
PROVIDERS: Emergency Medicine
DX: R07.89 Other chest pain (principal); E11.9 Type 2 diabetes mellitus without complications; I11.0 Hypertensive heart disease with heart failure; E78.5 Hyperlipidemia, unspecified; I48.91 Unspecified atrial fibrillation; I50.9 Heart failure, unspecified; F17.210 Nicotine dependence, cigarettes, uncomplicated; Z79.84 Long term (current) use of oral hypoglycemic drugs; Z79.01 Long term (current) use of anticoagulants

== ENCOUNTER 2018-08-11 16:38 | Emergency (ER) | payer MEDICAID ==
[~2018-08-11] VITALS: Ht 193 cm; Wt 127.3 kg
[~2018-08-11 16:38] MED LIST changes: +COREG 3.123.125 MG/T PO; +COUMADIN 5MG5 MG/TAB PO; +ENTRESTO 49 MG1 EACH PO; +LASIX 80MG TABL80 MG PO
[2018-08-11 17:03] LABS: BASO % 0.4 % (0.0-2.0); EOS # 0.2 (0.0-0.7); EOS % 1.6 % (0-4.0); GRAN # 8.5 (1.4-6.5); GRAN % 75.2 % (42.2-75.2); HEMOGLOBIN 17.4 g/dl (13.5-18.0); LYMPH # 1.7 (1.2-3.4); LYMPH % 15.2 % (20.0-51.0); MEAN CELL VOLUME 88 fl (80.0-100.0); MEAN CORPUSCULAR HEMOGLOBIN 29 pg (27.0-31.0); MEAN CORPUSCULAR HGB CONC 33 g/dl (33.0-37.0); MEAN PLATELET VOLUME 11.5 fl (7.4-10.4); MONO # 0.8 (0.1-0.6); MONO % 7.3 % (1.7-9.3); PLATELET COUNT 202 K/mm3 (130-400); RED BLOOD COUNT 5.99 M/mm3 (4.20-5.60); REDCELL DISTRIBUTION WIDTH-CV 14.8 % (11.5-14.5)
[2018-08-11 17:07] LABS: INR 1.4 (0.8-3.0); PROTHROMBIN TIME 16.1 SECONDS (9.7-12.8)
[2018-08-11 17:10] LABS: HEMATOCRIT 52.9 % (42.0-52.0)
[2018-08-11 17:12] LABS: ALBUMIN 4.1 gm/dL (3.5-5.0); BILIRUBIN,TOTAL 0.6 mg/dL (0.0-1.0); CALCIUM 9.1 mg/dL (8.4-10.2); CREATININE, serum 1.54 (0.66-1.25); POTASSIUM 4.4 mmol/L (3.4-5.0); TOTAL PROTEIN 7.7 gm/dL (6.4-8.2)
[2018-08-11 17:23] LABS: TROPONIN-I 0.035 ng/mL (0.000-0.035)
[2018-08-11 19:53] VITALS: BP 106/81; PULSE 83
== END 2018-08-11 19:53 | disposition home or self-care (01) ==
LOC: COL.ER 16:38
PROVIDERS: Emergency Medicine
DX: R07.89 Other chest pain (principal); R06.00 Dyspnea, unspecified; I50.9 Heart failure, unspecified; Z79.84 Long term (current) use of oral hypoglycemic drugs
CPT/HCPCS: J7030

== ENCOUNTER 2020-03-23 16:47 | Emergency (ER) | payer MEDICAID ==
[~2020-03-23] VITALS: Ht 193 cm; Wt 110.5 kg
[2020-03-23 16:53] VITALS: BP 92/72; PULSE 80; TEMP 97.9
[2020-03-23 17:22] LABS: BASO % 0.2 % (0.0-2.0); EOS # 0.2 (0.0-0.7); GRAN # 6.8 (1.4-6.5); GRAN % 70.1 % (42.2-75.2); HEMOGLOBIN 17.5 g/dl (13.5-18.0); LYMPH % 20.5 % (20.0-51.0); MEAN CELL VOLUME 88 fl (80.0-100.0); MEAN CORPUSCULAR HEMOGLOBIN 30 pg (27.0-31.0); MEAN CORPUSCULAR HGB CONC 34 g/dl (33.0-37.0); MONO # 0.6 (0.1-0.6); MONO % 6.6 % (1.7-9.3); PLATELET COUNT 155 K/mm3 (130-400); REDCELL DISTRIBUTION WIDTH-CV 13.9 % (11.5-14.5)
[2020-03-23 17:23] LABS: ALBUMIN 4.1 gm/dL (3.5-5.0); BILIRUBIN,TOTAL 0.7 mg/dL (0.0-1.0); CALCIUM 8.8 mg/dL (8.4-10.2); CREATININE, serum 1.08 (0.66-1.25); POTASSIUM 4.5 mmol/L (3.4-5.0)
[2020-03-23 17:34] LABS: TROPONIN-I 3 HR POST INITIAL 0.024 ng/mL (0.000-0.034)
[2020-03-23 19:31] LABS: PROTHROMBIN TIME 11.7 SECONDS (9.7-12.8)
[2020-03-23] MEDS ORDERED: ENTRESTO 97 MG1 EACH PO (19:39)
[2020-03-23] MEDS ORDERED: GLUCOPHAGE500 MG/TAB PO (19:42)
[2020-03-23] MEDS ORDERED: ASPIRIN 81M81 MG/TA2 PO (19:44)
[2020-03-23] MEDS ORDERED: LANTUS100 U/ML SQ (19:45)
[2020-03-23] MEDS ORDERED: VICTOZA6 MG/ML SQ (19:45)
[2020-03-23] MEDS ORDERED: RT SPIRIVA18 MCG IH (19:46)
== END 2020-03-23 21:45 | disposition left against medical advice (07) ==
LOC: COL.ER 16:47
PROVIDERS: Emergency Medicine; Nurse Practitioner Family
DX: R07.9 Chest pain, unspecified (principal); I42.9 Cardiomyopathy, unspecified; I11.0 Hypertensive heart disease with heart failure; I50.9 Heart failure, unspecified; E11.9 Type 2 diabetes mellitus without complications; I48.0 Paroxysmal atrial fibrillation; E78.5 Hyperlipidemia, unspecified; G47.33 Obstructive sleep apnea (adult) (pediatric); E66.9 Obesity, unspecified; F17.210 Nicotine dependence, cigarettes, uncomplicated; Z99.89 Dependence on other enabling machines and devices; Z95.810 Presence of automatic (implantable) cardiac defibrillator; Z91.14 Patient's other noncompliance with medication regimen; Z79.01 Long term (current) use of anticoagulants; Z79.82 Long term (current) use of aspirin; Z79.4 Long term (current) use of insulin

== ENCOUNTER 2020-09-29 12:32 | Emergency (ER) | payer MEDICAID ==
[~2020-09-29] VITALS: Ht 193 cm; Wt 125.0 kg
[~2020-09-29 12:32] MED LIST changes: +ENTRESTO 97 MG1 EACH PO; +RT SPIRIVA18 MCG IH; +VICTOZA6 MG/ML SQ
[2020-09-29 12:52] VITALS: TEMP 97.7
[2020-09-29 13:40] LABS: BASO % 0.3 % (0.0-2.0); EOS # 0.2 (0.0-0.7); EOS % 1.7 % (0-4.0); GRAN # 7.3 (1.4-6.5); GRAN % 75.1 % (42.2-75.2); HEMATOCRIT 44.6 % (42.0-52.0); HEMOGLOBIN 13.8 g/dl (13.5-18.0); LYMPH # 1.6 (1.2-3.4); LYMPH % 16.8 % (20.0-51.0); MEAN CELL VOLUME 85 fl (80.0-100.0); MEAN CORPUSCULAR HEMOGLOBIN 26 pg (27.0-31.0); MEAN CORPUSCULAR HGB CONC 31 g/dl (33.0-37.0); MEAN PLATELET VOLUME 11.6 fl (7.4-10.4); MONO # 0.6 (0.1-0.6); MONO % 5.8 % (1.7-9.3); PLATELET COUNT 159 K/mm3 (130-400); RED BLOOD COUNT 5.25 M/mm3 (4.20-5.60); REDCELL DISTRIBUTION WIDTH-CV 16.2 % (11.5-14.5)
[2020-09-29 13:51] LABS: ALBUMIN 3.6 gm/dL (3.5-5.0); C-REACTIVE PROTEIN 3.3 mg/dL (0.0-0.9); CALCIUM 8.3 mg/dL (8.4-10.2); CREATININE, serum 0.73 (0.66-1.25); TOTAL PROTEIN 6.9 gm/dL (6.4-8.2)
[2020-09-29 15:07] LABS: INR 6.5 (0.8-3.0); PROTHROMBIN TIME 73.8 SECONDS (9.7-12.8)
[2020-09-29 16:10] VITALS: BP 131/96; PULSE 78
== END 2020-09-29 16:12 | disposition home or self-care (01) ==
LOC: COL.ER 12:32
PROVIDERS: Physician Assistant
DX: R79.1 Abnormal coagulation profile (principal); M79.662 Pain in left lower leg; E78.5 Hyperlipidemia, unspecified; I11.0 Hypertensive heart disease with heart failure; I25.10 Atherosclerotic heart disease of native coronary artery without angina pectoris; I50.9 Heart failure, unspecified; I48.0 Paroxysmal atrial fibrillation; E11.9 Type 2 diabetes mellitus without complications; E66.9 Obesity, unspecified; J44.9 Chronic obstructive pulmonary disease, unspecified; F17.210 Nicotine dependence, cigarettes, uncomplicated; Z95.0 Presence of cardiac pacemaker; Z79.01 Long term (current) use of anticoagulants; Z79.4 Long term (current) use of insulin; Z79.82 Long term (current) use of aspirin; Z79.899 Other long term (current) drug therapy; Z68.33 Body mass index [BMI] 33.0-33.9, adult
CPT/HCPCS: J3010

== ENCOUNTER 2023-05-19 14:22 | Inpatient (IN) | payer MEDICAID ==
[~2023-05-19] VITALS: Ht 193 cm; Wt 121.6 kg
[2023-05-19] VITALS (125 sets, daily range): BP systolic 85–133; BP diastolic 54–123; PULSE 85–92; TEMP 98.1; O2SAT 86–98
[~2023-05-19 14:22] MED LIST changes: +ELIQUIS 5MG PO
[2023-05-19 15:29] LABS: MEAN CELL VOLUME 84 fl (80.0-100.0); MEAN CORPUSCULAR HGB CONC 34 g/dl (33.0-37.0); PLATELET COUNT 59 K/mm3 (130-400); RED BLOOD COUNT 6.39 M/mm3 (4.20-5.60); REDCELL DISTRIBUTION WIDTH-CV 15.9 % (11.5-14.5)
[2023-05-19 15:30] LABS: ALBUMIN 2.6 gm/dL (3.5-5.0); BILIRUBIN,TOTAL 1.8 mg/dL (0.2-1.2); CALCIUM 8.1 mg/dL (8.4-10.2); CREATININE, serum 1.6 mg/dL (0.72-1.25); POTASSIUM 4.6 mmol/L (3.5-4.5); TOTAL PROTEIN 5.7 gm/dL (6.2-8.1)
[2023-05-19 15:33] LABS: HEMATOCRIT 53.8 % (42.0-52.0); HEMOGLOBIN 18.3 g/dl (13.5-18.0); MEAN CORPUSCULAR HEMOGLOBIN 29 pg (27-31)
[2023-05-19] MEDS ORDERED: NS 1,000 ML IV ONE ×2 (15:41→18:45)
[2023-05-19 15:54] LABS: ANISOCYTOSIS 1+; BAND 5 % (0-10); BURR CELLS 1+; LYMPHOCYTE 4 % (20.0-51.0); NEUTROPHILS 88 % (42.0-75.2); PLATELET ESTIMATE INCREASED (NORMAL)
[2023-05-19 15:55] LABS: OVALOCYTES 1+
[2023-05-19] MEDS ORDERED: fentaNYL 50 MCG/ML 2 ML VIAL IV ONE (16:15)
[2023-05-19 16:31] LABS: INR 1.4 (0.8-3.0); PROTHROMBIN TIME 14.7 SECONDS (9.7-12.8)
[2023-05-19 16:39] LABS: C-REACTIVE PROTEIN 25.75 mg/dL (0.00-0.50)
[2023-05-19 16:48] LABS: TROPONIN-I 0.063 ng/mL (0.00-0.033)
[2023-05-19] MEDS ORDERED: Ondansetron 4 MG/2 ML VIAL IV PRN (17:15)
[2023-05-19] MEDS ORDERED: Acetaminophen 325 MG TAB PO PRN (17:15)
[2023-05-19] MEDS ORDERED: Albuterol/Ipratropium 3 MG-0.5 MG/3 ML Neb Soln IH PRN (17:30)
[2023-05-19] MEDS ORDERED: Pantoprazole 40 MG in NS 10 ML IV SCH (17:52)
--- NOTE | 2023-05-19 18:25 | NUR ---
Pt arrives to ICU 8 from ED at this time. Pt alert and oriented upon arrival. Able to transfer self from ED bed to ICU bed. Pt does easily become SOA with activity. Levophed gtt and fluids infusing. Pt has phone, clothes, and crocs in his possession. Pt's family member brought him charitydo valderrama. Pt orieted to room and instructed to call for assistance. Call light in reach and bed alarm on.
--- NOTE | 2023-05-19 19:00 | NUR ---
REPORT AT BEDSIDE. PT IS PLEASANT AND COOPERATIVE. PT'S EXWIFE AT BEDSIDE AND IS PROVIDING INFORMATION NEEDED. PT C/O PAIN IN BACK. REQUESTING RECLINER. RECLINER PROVIDED.
[2023-05-19 19:08] LABS: CALCIUM 8.5 mg/dL (8.4-10.2); CREATININE, serum 1.54 mg/dL (0.72-1.25); POTASSIUM 4.1 mmol/L (3.5-4.5)
[2023-05-19 19:23] LABS: TROPONIN-I 0.057 ng/mL (0.00-0.033)
[2023-05-19] MEDS ORDERED: Dextrose (Glucose) 15 GM (4 x 3.75 GM) Chewable TABLET PACK PO PRN (19:45)
[2023-05-19] MEDS ORDERED: Dextrose 50% Water 25 GM/50 ML SYRINGE IV PRN (19:45)
[2023-05-19] MEDS ORDERED: Glucagon 1 MG VIAL IM PRN (19:45)
[2023-05-19 20:00] LABS: COLLECTION METHOD CLEAN CATCH
[2023-05-19] MEDS ORDERED: Albuterol/Ipratropium 3 MG-0.5 MG/3 ML Neb Soln IH SCH (20:00)
[2023-05-19] MEDS ORDERED: Insulin Aspart (NovoLOG) SQ SCH ×3 (20:00→21:00)
[2023-05-19] MEDS ORDERED: Vancomycin 1.5 GM,Special Dose/Pharmacy Prepared 1.5 GM in NS 250 ML IV SCH (20:00)
[2023-05-19 20:32] LABS: PH 5.5 (5.0-8.5); URINE APPEARANCE Clear (CLEAR/HAZY); URINE COLOR Yellow (YELLOW); URINE GLUCOSE 3+ (NEGATIVE); URINE KETONE Negative (NEGATIVE); URINE NITRATE Negative (NEGATIVE); URINE PROTEIN(semi-quant) TRACE (NEGATIVE); URINE UROBILINOGEN 0.2 E.U/dL (0.2-1.0)
[2023-05-19 20:33] LABS: SQUAMOUS EPITHELIAL 0-2 /hpf (0-10); URINE BACTERIA Occasional /hpf (NONE SEEN); URINE BLOOD TRACE-LYSED (NEGATIVE); URINE RBC 0-2 /hpf (0-2)
[2023-05-19] MEDS ORDERED: Apixaban 5 MG TAB PO SCH (21:00)
[2023-05-19] MEDS ORDERED: Gabapentin 300 MG CAP PO SCH (21:00)
[2023-05-19] MEDS ORDERED: Atorvastatin 40 MG TAB PO SCH (21:00)
[2023-05-19] MEDS ORDERED: traMADol 50 MG TAB PO PRN (22:00)
[2023-05-19] MEDS ORDERED: Lidocaine 4% Topical Patch TP SCH (22:00)
[2023-05-20] VITALS (517 sets, daily range): BP systolic 76–129; BP diastolic 48–71; PULSE 83–101; TEMP 97.6–98.6; O2SAT 60–99
--- NOTE | 2023-05-20 02:50 | NUR ---
PT REMAINS STABLE ON ROUNDS. LEVOPHED INFUSING. PT VERBALIZED PAIN RELIEF WITH ULTRAM AND LIDOCAIN PATCH. PT PREFERS TO SLEEP IN RECLINER. LEGS BECOME MORE CYANOTIC WHEN DEPENDENT. PT VERBALIZES THAT THIS IS HIS NORMAL. UNABLE TO CULTURE WOUND ON END OF TOE DUE TO ESCHAR. NO SIGN OF DISTRESS AT THIS TIME.
[2023-05-20 06:21] LABS: MEAN CELL VOLUME 84 fl (80.0-100.0); MEAN CORPUSCULAR HGB CONC 34 g/dl (33.0-37.0); PLATELET COUNT 55 K/mm3 (130-400); RED BLOOD COUNT 6.47 M/mm3 (4.20-5.60); REDCELL DISTRIBUTION WIDTH-CV 16.1 % (11.5-14.5)
[2023-05-20 06:36] LABS: HEMATOCRIT 54.2 % (42.0-52.0); HEMOGLOBIN 18.4 g/dl (13.5-18.0); MEAN CORPUSCULAR HEMOGLOBIN 28 pg (27-31)
[2023-05-20 06:42] LABS: ALBUMIN 2.3 gm/dL (3.5-5.0); BILIRUBIN,TOTAL 1.8 mg/dL (0.2-1.2); CALCIUM 8.3 mg/dL (8.4-10.2); CREATININE, serum 1.6 mg/dL (0.72-1.25); POTASSIUM 4.1 mmol/L (3.5-4.5); TOTAL PROTEIN 5.9 gm/dL (6.2-8.1)
--- NOTE | 2023-05-20 06:44 | NUR ---
REMAINS ON LEVOPHED. 3 HOUR [facility] WAS NOT CALLED AT 2200, BECAUSE IT WAS TRENDING [facility]. CALLED THIS AM WITH THE WBC RESULT. STABLE ON ROUNDS. RESPIRATIONS EVEN AND UNLABORED. NO SIGN OF DISTRESS AT THIS TIME.
[2023-05-20 07:13] LABS: LYMPHOCYTE 3 % (20.0-51.0); NEUTROPHILS 81 % (42.0-75.2)
[2023-05-20 07:14] LABS: PLATELET ESTIMATE DECREASED (NORMAL)
[2023-05-20 07:15] LABS: ANISOCYTOSIS 1+
[2023-05-20 07:16] LABS: BAND 11 % (0-10)
--- NOTE | 2023-05-20 07:36 | NUR ---
[facility] NO CALLED. TRENDING DOWN. NURSING JUDGEMENT.
[2023-05-20] MEDS ORDERED: Influenza Virus Vaccine, Quad '23-24 (6 MOS+) 0.5 ML SYRINGE IM SCH (09:00)
[2023-05-20] MEDS ORDERED: Tiotropium 18 MCG **** subs to Tiotropium 5 mcg IH SCH (09:00)
[2023-05-20] MEDS ORDERED: Tiotropium 2.5 MCG Respimat MDI IH SCH (09:00)
[2023-05-20] MEDS ORDERED: ASPIRIN E.C. 8181 MG PO (09:56)
[2023-05-20] MEDS ORDERED: PROTONIX 40MG T40 MG PO (09:58)
[2023-05-20] MEDS ORDERED: LYRICA 150MG C150 MG PO (09:58)
[2023-05-20] MEDS ORDERED: JARDIANCE25 PO (09:58)
[2023-05-20] MEDS ORDERED: TRULICITY4.5 MG/0.5 SQ (09:59)
[2023-05-20] MEDS ORDERED: NS 1,000 ML IV SCH (10:15)
--- NOTE | 2023-05-20 15:48 | NUR ---
JAZMYNE Student identified self as SW Student and completed intake with patient at bedside. Patient stated that he lives in [place], [place] with a roommate who owns their house and his girlfriend. His point of contact is his mother Naty (ph#[phone]). Patient sees Evan Pepper at [facility] for primary care. Patient prefers to obtain medications from [facility] and stated that he has not had any issues with affording medications. Patient reported that he is independent with ADLs and IADLs and does not utilize any DME. Patient stated that he has a source of transportation when needed. Patient currently has [employer] and stated that he will start receiving Medicare for disability in November. Patient stated that he plans to return home at time of discharge. Discharge Plan: Home
[2023-05-20] MEDS ORDERED: NS 500 ML IV ONE (19:30)
[2023-05-20] MEDS ORDERED: Pregabalin 150 MG CAP PO SCH (21:00)
--- NOTE | 2023-05-20 21:49 | NUR ---
PT RESTING IN CHAIR AND BED SIDE REPORT RECIEVED AND DRIPS AND STATUS NOTED TO BE PER REPORT. PT IS A&O X3. BP NOTED TO BE LOW AND LEVOPHED INFUSING AND WILL BE TITRATED PER ORDER. PT DENIES PAIN AT THIS TIME AND ALSO REPORTS DECREASED SENSATION TO BLE. ASSESSMENTS COMPLETED AT THIS TIME, CHAIR WHEELS ARE LOCKED, CALL LIGHT WITHIN REACH, AND PT DENIES ADDITIONAL NEEDS. CARE PLAN REVIEWED AND ALL QUESTIONS ANSWERED.
--- NOTE | 2023-05-20 23:02 | NUR ---
PT REPORTS HE IS GETTING SWEATY. MOIST TO TOUCH. TEMP 98.6. BS CHECKED TO BE 287 AND RECHECK AT 0000. PT REPORTS HE PLANS TO SLEEP. REQUESTED LIGHTS OFF AT THIS TIME. NO ADDITIONAL NEEDS VOICED OR ANTICIPATED
[2023-05-21] VITALS (360 sets, daily range): BP systolic 90–146; BP diastolic 59–86; PULSE 74–223; TEMP 97.3–98.1; O2SAT 74–100
[2023-05-21 04:52] LABS: MEAN CELL VOLUME 85 fl (80.0-100.0); MEAN CORPUSCULAR HGB CONC 33 g/dl (33.0-37.0); RED BLOOD COUNT 6.96 M/mm3 (4.20-5.60); REDCELL DISTRIBUTION WIDTH-CV 17.3 % (11.5-14.5)
[2023-05-21 05:21] LABS: HEMATOCRIT 59.4 % (42.0-52.0); HEMOGLOBIN 19.7 g/dl (13.5-18.0); MEAN CORPUSCULAR HEMOGLOBIN 28 pg (27-31)
[2023-05-21 05:24] LABS: PLATELET COUNT 38 K/mm3 (130-400)
[2023-05-21 07:00] LABS: ANISOCYTOSIS 1+; BAND 12 % (0-10); LYMPHOCYTE 4 % (20.0-51.0); NEUTROPHILS 76 % (42.0-75.2); PLATELET ESTIMATE DECREASED (NORMAL)
--- NOTE | 2023-05-21 07:00 | NUR ---
Received report from ANJANA Nicholas. Reports that patient was somewhat restless overnight. Pt awake and alert at this time; assisted with using urinal. Lies in bed with call light in reach and bed alarm on.
[2023-05-21 07:47] LABS: ALBUMIN 2.5 gm/dL (3.5-5.0); BILIRUBIN,TOTAL 1.2 mg/dL (0.2-1.2); CALCIUM 8.5 mg/dL (8.4-10.2); CREATININE, serum 1.83 mg/dL (0.72-1.25); POTASSIUM 4.3 mmol/L (3.5-4.5); TOTAL PROTEIN 6.6 gm/dL (6.2-8.1)
[2023-05-21] MEDS ORDERED: ceFAZolin 2 G in Water For Injection,Sterile 20 ML IV SCH (09:30)
[2023-05-21] MEDS ORDERED: Cefepime 1 G in Water For Injection,Sterile 10 ML IV SCH (09:30)
--- NOTE | 2023-05-21 10:15 | NUR ---
This nurse called Dr. Choi to let her know that pt is now tachypnic, lethargic, is having trouble staying awake, and has poor cap refil. Dr. Choi came to the pt's bedside to assess pt. New orders received from chest Xray and ABG. Respiratory therapy made aware of order. Pt also placed on HFNC at this time due to desatting into the mid 80's.
[2023-05-21 11:07] LABS: ARTERIAL BLD GAS TCO2 CT 22.2; ARTERIAL BLOOD GAS BASE EXCESS -8.4 (-2-2); ARTERIAL BLOOD GAS HCO3 20.5 meq/L (22-26); ARTERIAL BLOOD GAS PCO2 55.7 mmHg (35-45); ARTERIAL BLOOD GAS PO2 67.7 mmHg (80-100)
[2023-05-21 11:08] LABS: ARTERIAL BLOOD GAS pH 7.18 (7.35-7.45)
[2023-05-21] MEDS ORDERED: Phenylephrine 10 MG/ML VIAL ONE (11:47)
[2023-05-21] MEDS ORDERED: Succinylcholine PF 100 MG/5 ML SYRINGE/POLY AMP IV ONE (11:47)
[2023-05-21] MEDS ORDERED: Etomidate 20 MG/10 ML VIAL IV ONE (11:47)
[2023-05-21] MEDS ORDERED: NS 100 ML IV ONE (11:47)
--- NOTE | 2023-05-21 12:19 | NUR ---
1219- Patient being prepped for intubation. This nurse, Axel ENGINE MANAGER, Enma RN, and Delaney [employer] FACTORY WORKER present through out. Time out also done at this time. Consent for arterial line and intubation obtained from pt's mother who is his medical DPOA. 1221- Sedation administered to pt by Axel, 1222- 8.0 ETT placed 25cm at teeth; lung sounds verified. Pt connected to ventilator. Vital signs stable. 1225- OG tube place; 65cm at teeth. 16Fr nichole catheter placed. 1315- ETT placement and OG placement confirmed by xray.
[2023-05-21] MEDS ORDERED: Insulin Aspart (NovoLOG) SQ SCH (12:36)
[2023-05-21] MEDS ORDERED: fentaNYL 100 ML IV SCH (12:45)
[2023-05-21] MEDS ORDERED: Naloxone 0.4 MG/ML VIAL IV PRN (12:45)
[2023-05-21] MEDS ORDERED: Albuterol 0.083% Neb Soln 2.5 MG/3 ML UD IH PRN (12:45)
[2023-05-21] MEDS ORDERED: Vasopressin 20 UNITS in NS 100 ML IV PRN (13:00)
--- NOTE | 2023-05-21 13:39 | NUR ---
Data: Herb Doctor visit with Patient's Mother and Ex- in the ICU waiting area. Assessment: Both are resigned with his illness; have been through this before. Declined prayer for themselves. Requested Herb Doctor pray with Patient. Plan of Care: RN and Respiratory Therapy Staffmember were with Patient. Herb Doctor prayed for Patient in the Chapel.
--- NOTE | 2023-05-21 13:48 | NUR ---
1348- This nurse made aware by QWiPS that pt in VTach then shocked by ICD. This nurse at the pts bedside upon ICD delivering shock. Dr. Moore called and made aware. Crash cart brought to pt's room and pt attached to zoll monitor. 1351- VTach and shock delivered by ICD. Dr. Choi arrived to pt's bedside. 1356- 150mg amiodarone given IVP. Dr. Choi talkin on the phone with Dr. Bundy. Instructed to start amiodarone gtt at 1mg/min 1400- Amio gtt started at 1mg/min. 1401- VTach and shock delivered by ICD. 1402- 150mg amiodarone given IVP. 1406- VTach and shock delivered by ICD. 1407- VTach and shock delivered by ICD. Dr. Bundy arrived to bedside. 1409- 100mg lidocaine given IVP. 1422- 150mg amiodarone given IVP. Lidocaine gtt started at 1mg/min. 1425- 1g calcium IVP, 1 amp bicarb IVP 1428- VTach and shock delivered by ICD. 1429- 1 amp bicarb IVP, VTach and shock delivered by ICD. 1430- VTach and shock delivered by ICD. 1432- VTach and shock delivered by ICD. 1434- VTach and shock delivered by ICD. 1435- 100mg lidocain given IVP. VTach and shock deliveredby ICD. 1436- VTach and shock delivered by ICD. 1439- 2 grams magnesium given via bolus per Dr. Bundy. 1500- Dr. Choi calling outside facilities to transferto higher level of care. 1536- VTach and shock delivered by ICD. 1537- VTach and shock delivered by ICD. 1545- Pt accepted by [facility] by Dr. Gordon. [facility] called by SHEILA Gilbert. 1615- [facility] arrived. Report given to flight nurse. 1700- Pt left facility at this time via [facility]. Stable at time of transfer. Pt's mother present upon transfer and aware of transfer. All belongings sent with pt's mother; nintendo switch, phone, clock and watch hands dipper, shoes and clothes. 1710- Report given via phone to ANJANA Dong at [facility].
[2023-05-21] MEDS ORDERED: Amiodarone 150 MG/3 ML VIAL IV PRN (14:00)
[2023-05-21] MEDS ORDERED: LIDOCAINE IV ONE ×2 (14:09→14:25)
[2023-05-21] MEDS ORDERED: CARDIAC IV ONE ×2 (14:09→14:25)
[2023-05-21] MEDS ORDERED: Calcium Chloride 1,000 MG (13.6 mEq)/10 ML SYRINGE IV ONE (14:25)
[2023-05-21] MEDS ORDERED: Sodium Bicarbonate 8.4% 50 MEQ/50 ML SYRINGE IV ONE ×2 (14:25→14:29)
[2023-05-21] MEDS ORDERED: Magnesium Sulfate 4% 50 ML IV ONE (14:39)
[2023-05-21 14:41] LABS: ARTERIAL BLD GAS O2 SATURATION 98.6 % (92-100); ARTERIAL BLD GAS TCO2 CT 24.8; ARTERIAL BLOOD GAS BASE EXCESS -1.9 (-2-2); ARTERIAL BLOOD GAS HCO3 23.5 meq/L (22-26); ARTERIAL BLOOD GAS PO2 109.9 mmHg (80-100); ARTERIAL BLOOD GAS pH 7.37 (7.35-7.45)
[2023-05-21 14:49] LABS: MEAN CELL VOLUME 88 fl (80.0-100.0); MEAN CORPUSCULAR HGB CONC 33 g/dl (33.0-37.0); RED BLOOD COUNT 5.57 M/mm3 (4.20-5.60); REDCELL DISTRIBUTION WIDTH-CV 16.3 % (11.5-14.5)
[2023-05-21 15:17] LABS: HEMOGLOBIN 16.3 g/dl (13.5-18.0); MEAN CORPUSCULAR HEMOGLOBIN 29 pg (27-31)
[2023-05-21 15:18] LABS: PLATELET COUNT 48 K/mm3 (130-400)
[2023-05-21 15:27] LABS: ALBUMIN 1.8 gm/dL (3.5-5.0); BILIRUBIN,TOTAL 0.7 mg/dL (0.2-1.2); CREATININE, serum 1.78 mg/dL (0.72-1.25); MAGNESIUM 1.9 mg/dL (1.6-2.6); POTASSIUM 4.6 mmol/L (3.5-4.5)
[2023-05-21 15:49] LABS: BAND 26 % (0-10); PLATELET ESTIMATE DECREASED (NORMAL); TROPONIN-I 0.036 ng/mL (0.00-0.033)
[2023-05-21 15:52] LABS: LYMPHOCYTE 4 % (20.0-51.0); NEUTROPHILS 64 % (42.0-75.2)
--- NOTE | 2023-05-21 19:53 | NUR ---
PT WAS INTUBATED AT 1222 PER ANESTHESIA WITHOUT COMPLICATIONS. 8.0 ETT 25 @ TEETH. BILAT BREATH SOUNDS AND ETCO2 MONITOR CHANGED COLOR INDICATION SUCCESSFUL INTUBATION. COPIOUS AMOUNTS OF CLEAR ORAL SECRETIONS. MODERATE AMOUNT OF THICK BLOOD OUT OF ETT. PT COUGHED INTO THE ETT TUBE DID NOT GO FAR DOWN THE TUBE DUE TO PLATELET COUNT. [facility] ARRIVED FOR TRANSPORT PT WAS SWITCHED FROM THE 980 VENT TO TRANSPORT VENT @ 1656. TOLERATED WELL.
[2023-05-21] MEDS ORDERED: LIDOCAINE IV SCH (21:15)
[2023-05-21] MEDS ORDERED: D5W IV SCH (21:15)
[2023-05-21] MEDS ORDERED: Amiodarone 450 MG in D5W Excel 250 ML IV SCH (21:15)
== END 2023-05-21 17:00 | disposition short-term general hospital (02) | DRG 871 ==
LOC: COL.ER 14:22 → ICU 17:51
PROVIDERS: Emergency Medicine; Internal Medicine Pulmonary Disease; Physician Assistant; ADMIT Internal Medicine
PROC: 0BH17EZ Insertion of Endotracheal Airway into Trachea, Via Natural or Artificial Opening (ICD-10-PCS; principal; 2023-05-21)
PROC: 5A1945Z Respiratory Ventilation, 24-96 Consecutive Hours (ICD-10-PCS; 2023-05-21)
PROC: 03HY32Z Insertion of Monitoring Device into Upper Artery, Percutaneous Approach (ICD-10-PCS; 2023-05-21)
PROC: 4A133B1 Monitoring of Arterial Pressure, Peripheral, Percutaneous Approach (ICD-10-PCS; 2023-05-21)
PROC: 4A133J1 Monitoring of Arterial Pulse, Peripheral, Percutaneous Approach (ICD-10-PCS; 2023-05-21)
DX: A41.01 Sepsis due to Methicillin susceptible Staphylococcus aureus (principal); I21.A1 Myocardial infarction type 2; J96.01 Acute respiratory failure with hypoxia; R65.21 Severe sepsis with septic shock; I49.01 Ventricular fibrillation; J96.02 Acute respiratory failure with hypercapnia; I42.8 Other cardiomyopathies; I50.22 Chronic systolic (congestive) heart failure; E87.1 Hypo-osmolality and hyponatremia; N17.9 Acute kidney failure, unspecified; E87.20 Acidosis, unspecified; M86.8X7 Other osteomyelitis, ankle and foot; I47.20 Ventricular tachycardia, unspecified; I47.21 Torsades de pointes; J44.9 Chronic obstructive pulmonary disease, unspecified; G47.33 Obstructive sleep apnea (adult) (pediatric); I25.10 Atherosclerotic heart disease of native coronary artery without angina pectoris; I48.0 Paroxysmal atrial fibrillation; M79.10 Myalgia, unspecified site; I95.9 Hypotension, unspecified; E78.5 Hyperlipidemia, unspecified; I11.0 Hypertensive heart disease with heart failure; F17.210 Nicotine dependence, cigarettes, uncomplicated; E11.621 Type 2 diabetes mellitus with foot ulcer; L97.529 Non-pressure chronic ulcer of other part of left foot with unspecified severity; E87.8 Other disorders of electrolyte and fluid balance, not elsewhere classified; Z20.822 Contact with and (suspected) exposure to COVID-19; D69.6 Thrombocytopenia, unspecified; I08.1 Rheumatic disorders of both mitral and tricuspid valves; K26.9 Duodenal ulcer, unspecified as acute or chronic, without hemorrhage or perforation; L03.032 Cellulitis of left toe; D75.1 Secondary polycythemia; F19.10 Other psychoactive substance abuse, uncomplicated; E11.65 Type 2 diabetes mellitus with hyperglycemia; E66.9 Obesity, unspecified; Z95.0 Presence of cardiac pacemaker; Z79.84 Long term (current) use of oral hypoglycemic drugs; Z79.82 Long term (current) use of aspirin; Z79.01 Long term (current) use of anticoagulants; Z79.4 Long term (current) use of insulin; Z79.899 Other long term (current) drug therapy; Z68.33 Body mass index [BMI] 33.0-33.9, adult
CPT/HCPCS: A4314; A9270; C1751; C1892; C9113; J0282; J0330; J0690; J0692; J1815; J2001; J2371; J2543; J2598; J2704; J3010; J3370; J3475; J7030; J7040; J7050; J7060; Q3014

== ENCOUNTER → 2023-07-13 | Outpatient (CLI) | payer MEDICAID ==
[~2023-07-13] VITALS: Ht 193 cm; Wt 103.0 kg
[~2023-07-13] MED LIST changes: +ASPIRIN E.C. 8181 MG PO; +B-121000 MCG PO; +BUMEX2 MG PO; +CEFAZOLIN SODIUM2 GM IV; +CORDARONE200 MG/TAB PO; +ENTRESTO 24 MG1 EACH PO; +JARDIANCE25 PO; +LYRICA 150MG C150 MG PO; +MAG-OX 400400 MG/TAB PO; +OZEMPIC0.25 MG/02 SQ; +PROTONIX 40MG T40 MG PO; +TOPROL XL 25MG25 MG PO; +TRULICITY4.5 MG/0.5 SQ; +TYLENOL 500MG500 MG PO
[2023-07-13 12:11] VITALS: BP 91/69; PULSE 70; TEMP 97.5
== END ==
LOC: COL.RAD 11:30
DX: I33.0 Acute and subacute infective endocarditis (principal); B95.61 Methicillin susceptible Staphylococcus aureus infection as the cause of diseases classified elsewhere; Z79.2 Long term (current) use of antibiotics

== ENCOUNTER 2023-12-01 05:07 | Emergency (ER) | payer MEDICAID ==
[~2023-12-01] VITALS: Ht 193 cm; Wt 118.2 kg
[2023-12-01 05:13] VITALS: TEMP 97.8
[2023-12-01 05:30] LABS: BASO # 0.1 K/mm3 (0.0-0.2); BASO % 0.5 % (0.0-2.0); EOS # 0.4 K/mm3 (0.0-0.7); EOS % 4.4 % (0.0-4.0); GRAN # 6.1 K/mm3 (1.4-6.5); GRAN % 62.7 % (42.2-75.2); HEMATOCRIT 51.1 % (42.0-52.0); HEMOGLOBIN 16.6 g/dl (13.5-18.0); LYMPH # 2.5 K/mm3 (1.2-3.4); LYMPH % 25.6 % (20.0-51.0); MEAN CELL VOLUME 86 fl (80.0-100.0); MEAN CORPUSCULAR HEMOGLOBIN 28 pg (27-31); MEAN CORPUSCULAR HGB CONC 33 g/dl (33.0-37.0); MEAN PLATELET VOLUME 11.3 fl (7.4-10.4); MONO # 0.6 K/mm3 (0.1-0.6); MONO % 6.4 % (1.7-9.3); PLATELET COUNT 166 K/mm3 (130-400); RED BLOOD COUNT 5.93 M/mm3 (4.20-5.60); REDCELL DISTRIBUTION WIDTH-CV 14.6 % (11.5-14.5)
[2023-12-01 05:42] LABS: COLLECTION METHOD CLEAN CATCH
[2023-12-01 05:45] LABS: INR 1.1 (0.8-3.0); PROTHROMBIN TIME 11.4 SECONDS (9.7-12.8)
[2023-12-01 05:48] LABS: ALBUMIN 3.5 g/dL (3.5-5.0); BILIRUBIN,TOTAL 0.5 mg/dL (0.2-1.2); CALCIUM 8.6 mg/dL (8.4-10.2); CREATININE, serum 0.88 mg/dL (0.72-1.25); PARTIAL THROMBOPLASTIN TIME 36.9 SECONDS (26.0-37.0); POTASSIUM 4.1 mEq/L (3.5-4.5); TOTAL PROTEIN 6.7 g/dl (6.2-8.1)
[2023-12-01 05:51] LABS: PH 5.5 (5.0-8.5); URINE APPEARANCE CLEAR (CLEAR/HAZY); URINE BLOOD NEGATIVE (NEGATIVE); URINE COLOR YELLOW (YELLOW); URINE GLUCOSE 3+ (NEGATIVE); URINE KETONE NEGATIVE (NEGATIVE); URINE NITRATE NEGATIVE (NEGATIVE); URINE PROTEIN(semi-quant) NEGATIVE (NEGATIVE); URINE UROBILINOGEN 0.2 E.U/dL (0.2-1.0)
[2023-12-01 05:54] LABS: TROPONIN-I 0.021 ng/mL (0.00-0.033)
[2023-12-01] MEDS ORDERED: Ketorolac 30 MG/ML VIAL IV ONE (06:00)
[2023-12-01 06:03] LABS: TRICYCLIC ANTIDEPRESS URINE NEGATIVE (NEGATIVE)
[2023-12-01] MEDS ORDERED: FLEXERIL 1010 MG/TAB PO (07:37)
[2023-12-01 08:00] VITALS: BP 123/84; PULSE 64
== END 2023-12-01 08:00 | disposition home or self-care (01) ==
LOC: COL.ER 05:07
PROVIDERS: Family Medicine
DX: S29.011A Strain of muscle and tendon of front wall of thorax, initial encounter (principal); E66.09 Other obesity due to excess calories; F17.210 Nicotine dependence, cigarettes, uncomplicated; Z68.37 Body mass index [BMI] 37.0-37.9, adult; Z95.810 Presence of automatic (implantable) cardiac defibrillator; X58.XXXA Exposure to other specified factors, initial encounter
CPT/HCPCS: J1885; J2360